=== PATIENT | female | born 1950 | race African-American/Black ===

== ENCOUNTER 2024-01-16 10:12 | Emergency (ER) | payer SELFPAY ==
[~2024-01-16] VITALS: Ht 154.9 cm; Wt 95.0 kg
[2024-01-16 10:23] VITALS: TEMP 98.4
[2024-01-16] MEDS ORDERED: Ondansetron 4 MG/2 ML VIAL IV ONE (11:15)
[2024-01-16] MEDS ORDERED: NS 1,000 ML IV ONE (11:15)
[2024-01-16] MEDS ORDERED: Morphine 4 MG/ML VIAL IV ONE (11:15)
[2024-01-16 12:03] LABS: BASO % 0.2 % (0.0-2.0); EOS # 0.1 K/mm3 (0.0-0.7); EOS % 2.3 % (0.0-4.0); GRAN # 2.9 K/mm3 (1.4-6.5); GRAN % 57.4 % (42.2-75.2); LYMPH # 1.6 K/mm3 (1.2-3.4); LYMPH % 30.9 % (20.0-51.0); MEAN CELL VOLUME 88 fl (80.0-100.0); MEAN CORPUSCULAR HGB CONC 29 g/dl (33.0-37.0); MEAN PLATELET VOLUME 9.9 fl (7.4-10.4); MONO # 0.5 K/mm3 (0.1-0.6); MONO % 8.8 % (1.7-9.3); PLATELET COUNT 294 K/mm3 (130-400); RED BLOOD COUNT 3.68 M/mm3 (4.10-5.30); REDCELL DISTRIBUTION WIDTH-CV 15.6 % (11.5-14.5)
[2024-01-16 12:04] LABS: HEMATOCRIT 32.3 % (37.0-47.0); HEMOGLOBIN 9.2 g/dl (12.5-16.0); MEAN CORPUSCULAR HEMOGLOBIN 25 pg (27-31)
[2024-01-16 12:17] LABS: URINE APPEARANCE Clear (CLEAR/HAZY); URINE BLOOD TRACE-INTACT (NEGATIVE); URINE COLOR Yellow (YELLOW); URINE GLUCOSE Negative (NEGATIVE); URINE KETONE Negative (NEGATIVE); URINE NITRATE Negative (NEGATIVE); URINE PROTEIN(semi-quant) Negative (NEGATIVE); URINE UROBILINOGEN 0.2 E.U/dL (0.2-1.0)
[2024-01-16 12:19] LABS: COLLECTION METHOD CLEAN CATCH
[2024-01-16 12:22] LABS: ALBUMIN 3.5 g/dL (3.4-4.8); BILIRUBIN,TOTAL 0.3 mg/dL (0.2-1.2); CALCIUM 9.7 mg/dL (8.4-10.2); CREATININE, serum 0.92 mg/dL (0.57-1.11); POTASSIUM 5.1 mEq/L (3.5-4.5); TOTAL PROTEIN 9.3 g/dl (6.2-8.1)
[2024-01-16] MEDS ORDERED: Iohexol 300 - 100 ML VIAL IV ONE (12:53)
[2024-01-16] MEDS ORDERED: NS 100 ML IV ONE (12:54)
[2024-01-16] MEDS ORDERED: PERCOCET 325 MG1 TA2 PO (14:17)
[2024-01-16 14:44] VITALS: BP 157/66; PULSE 88
--- NOTE | 2024-01-18 15:22 | NUR ---
SHARLA recieved email from financial counselor stating that she had contacted patient and completed FAA. SW called to speak with patient regarding resources. Patient's (caregiver) Larissa Schmitt ([phone]) answered phone and stated that she is "making arrangements for patient". SW questioned what that meant. Larissa stated she has contacted Dr. Escalera's office and was told they will get a Good [employer] Estimate and schedule scan for diagnosis. Patient is scheduled to return to [place] in February. No other needs identified at this time.
== END 2024-01-16 14:44 | disposition home or self-care (01) ==
LOC: COL.ER 10:12
PROVIDERS: Physician Assistant
DX: C78.6 Secondary malignant neoplasm of retroperitoneum and peritoneum (principal); E87.5 Hyperkalemia
CPT/HCPCS: J2270; J2405; J7030; Q9967